=== PATIENT | female | born 1995 | race Caucasian/White ===

== ENCOUNTER 2018-04-25 12:50 | Emergency (ER) | payer MEDICAID ==
[2018-04-25 12:53] VITALS: BP 117/80; Ht 160 cm
== END 2018-04-25 14:30 | disposition home or self-care (01) ==
LOC: ED 12:50
DX: H10.9 Unspecified conjunctivitis (principal)

== ENCOUNTER 2018-11-20 18:06 | Emergency (ER) | payer MEDICAID ==
[~2018-11-20] VITALS: Ht 160 cm; Wt 59.9 kg
[2018-11-20 18:16] VITALS: Ht 160 cm; Wt 59.9 kg
[2018-11-20 21:45] VITALS: BP 132/84
== END 2018-11-20 21:45 | disposition home or self-care (01) ==
LOC: ED 18:06
DX: J06.9 Acute upper respiratory infection, unspecified (principal)

== ENCOUNTER 2019-05-08 12:11 | Emergency (ER) | payer MEDICAID ==
[~2019-05-08] VITALS: Ht 160 cm; Wt 56.9 kg
[2019-05-08 12:22] VITALS: Ht 160 cm; Wt 56.9 kg
[2019-05-08 13:01] LABS: BASOPHIL % 0.6 % (0-2); PLATELET COUNT 344 x10^3mcL (130-400)
[2019-05-08 13:05] LABS: RED CELL DISTRIBUTION WIDTH 14.9 % (11.5-14.5)
[2019-05-08 13:06] LABS: rbc morphology (normal/abnorm) ABNORMAL (NORMAL)
[2019-05-08 13:23] LABS: CALCIUM 8.1 mg/dL (8.5-10.1); CARBON DIOXIDE 27.9 mmol/L (21-32); CHLORIDE SERUM 104 mmol/L (98-107); CREATININE SERUM 0.8 mg/dL (0.6-1.0); GFR1 > 60 mL/min; GLUCOSE SERUM 107 mg/dL (74-106); POTASSIUM SERUM 3.3 mmol/L (3.5-5.1); SODIUM SERUM 140 mmol/L (136-145)
[2019-05-08 13:27] LABS: ALBUMIN 3.7 g/dL (3.4-5.0); ALKALINE PHOSPHATASE 78 U/L (46-116); ALT/SGPT 23 U/L (14-59); AST/SGOT 19 U/L (15-37); LIPASE 88 IU/L (73-393); TOTAL PROTEIN, SERUM 7.5 g/dL (6.4-8.2)
[2019-05-08 14:37] VITALS: BP 117/78
== END 2019-05-08 14:37 | disposition home or self-care (01) ==
LOC: ED 12:11
PROVIDERS: Emergency Medicine
DX: K52.9 Noninfective gastroenteritis and colitis, unspecified (principal)
CPT/HCPCS: J2405; J7030